=== PATIENT | female | born 1985 | race Caucasian/White ===

== ENCOUNTER 2020-06-02 11:27 | Emergency (ER) | payer MEDICAID ==
[~2020-06-02] VITALS: Ht 165.1 cm; Wt 84.5 kg
== END 2020-06-02 14:19 | disposition home or self-care (01) ==
LOC: ER 11:28
DX: R09.89 Other specified symptoms and signs involving the circulatory and respiratory systems (principal); R09.81 Nasal congestion; R06.02 Shortness of breath; Z20.828 Contact with and (suspected) exposure to other viral communicable diseases; F17.200 Nicotine dependence, unspecified, uncomplicated; Z88.0 Allergy status to penicillin
CPT/HCPCS: 36415; 71045; 99283

== ENCOUNTER 2021-02-19 12:12 | Emergency (ER) | payer MEDICAID ==
[~2021-02-19] VITALS: Ht 165.1 cm; Wt 79.5 kg
[2021-02-19 13:06] VITALS: BP 125/84
== END 2021-02-19 14:43 | disposition home or self-care (01) ==
LOC: ER 12:13
DX: J02.9 Acute pharyngitis, unspecified (principal); Z20.822 Contact with and (suspected) exposure to COVID-19; R43.8 Other disturbances of smell and taste; R05 Cough; R09.81 Nasal congestion; R51.9 Headache, unspecified; Z88.0 Allergy status to penicillin
CPT/HCPCS: 36415; 99283; U0003; U0005